=== PATIENT | female | born 1995 | race Caucasian/White ===

== ENCOUNTER 2018-03-03 16:24 | Emergency (ER) | payer OTHER ==
[2018-03-03 16:39] VITALS: BP 106/62
--- NOTE | 2018-03-03 16:54 | ED Physician Documentation ---
General Adult - HPI Stated Complaint: thumb pain Chief Complaint: General Adult Additional Information: Sore thumb for several days. Had manicure about 12 days ago and noticed thumb pain a few days after that. 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 No modifying factors or other associated signs. - ROS CONST: no problems - PAST HX Past History: none Allergies/Adverse Reactions: Allergies Allergy/AdvReac Type Severity Reaction Status Date / Time No Known Drug Allergies Allergy Verified 03/03/18 16:38 Home Medications: Ambulatory Orders Medication Instructions Recorded Cephalexin [Keflex] 500 mg PO Q6H #40 capsule 03/03/18 - SOCIAL HX Smoking History: non-smoker - FAMILY HX Family History: No - VITAL SIGNS Vital Signs: Vital Signs Temp Pulse Resp BP Pulse Ox 98.8 F 99 H 14 106/62 97 03/03/18 16:33 03/03/18 16:33 03/03/18 16:33 03/03/18 16:33 03/03/18 16:33 - REVIEWED ASSESSMENTS Nursing Assessment Reviewed: Yes Vitals Reviewed: Yes General Adult Physical Exam - PHYSICAL EXAM GENERAL APPEARANCE: mild distress EENT: eye inspection normal, ENT inspection normal NECK: normal inspection RESPIRATORY: no resp distress BACK: other (movements w/o pain) SKIN: warm/dry, normal color (wxcwt medial periungual area right thumbwith swelling, erythema, central 2 mm opening, ) EXTREMITIES: normal range of motion (gait and stance) NEURO: CN's nml as tested, motor nml, sensation nml, cognition normal Discharge Clincal Impression: Paronychia Prescriptions: Cephalexin [Keflex] 500 mg PO Q6H #40 capsule Referrals: Primary Doctor,No [Primary Care Provider] - 2 Days Additional Instructions: Your antibiotic prescription is at [facility]. Soak the thumb in warm soapy water at least 4 times a day. Return to the ER or see your provider if you are not getting better in 24 hours. Condition: Good Disposition: 01 HOME, SELF-CARE Decision to Admit: NO Decision Time: 16:45
== END 2018-03-03 16:54 | disposition home or self-care (01) ==
LOC: ED 16:24
DX: L03.011 Cellulitis of right finger (principal)
CPT/HCPCS: 99282